=== PATIENT | male | born 1950 | race Caucasian/White ===

== ENCOUNTER 2017-12-11 12:33 | Emergency (ER) | payer MEDICARE, BC ==
[2017-12-11 13:13] LABS: BASOPHILS % (AUTO) 2 % (0-3); EOSINOPHILS % (AUTO) 4 % (0-9); HEMATOCRIT 46 % (39-53); MEAN CORPUSCULAR HGB CONC 34.3 gm/dl (32.0-36.0); MEAN CORPUSCULAR VOLUME 88 fL (80-100); MONOCYTES % (AUTO) 11.4 % (0-12); NEUTROPHILS % (AUTO) 51.7 % (37-80)
[2017-12-11 13:16] VITALS: TEMP 97.6
[2017-12-11 13:20] LABS: CALCIUM 8.4 mg/dl (8.5-10.1); GLOM FILT RATE 78 mL/min (>60); POTASSIUM 3.7 mMol/L (3.5-5.1); SODIUM 141 mMol/L (136-145)
[2017-12-11 13:22] VITALS: RESP 18
[2017-12-11 13:23] VITALS: BP 134/68; PULSE 61; O2SAT 95
== END 2017-12-11 13:45 | disposition home or self-care (01) | DRG 74 ==
LOC: SUPCPDRO 12:33 → ED 12:33
DX: M54.10 Radiculopathy, site unspecified (principal)
CPT/HCPCS: 36415; 80048; 84484; 85025; 93005; 99284